=== PATIENT | male | born 1970 | race Two or more races ===

== ENCOUNTER 2021-10-08 22:45 | Emergency (ER) | payer OTHER ==
[~2021-10-08] VITALS: Ht 172.7 cm; Wt 98.0 kg
[~2021-10-08 22:45] MED LIST: AVAPRO150 MG; TRILIPIX
[2021-10-08] MEDS ORDERED: AVAPRO300 MG PO (23:15)
[2021-10-08] MEDS ORDERED: ATORVASTATIN CA10 MG PO (23:15)
[2021-10-09] MEDS ORDERED: VISTARIL50 MG PO (01:47)
== END 2021-10-09 01:57 ==
LOC: ER 22:45
DX: I10 Essential (primary) hypertension (principal); R00.2 Palpitations; F41.9 Anxiety disorder, unspecified; R53.81 Other malaise